=== PATIENT | male | born 1950 | race Caucasian/White ===

== ENCOUNTER 2022-08-09 06:18 | Day surgery (SDC) | payer MEDICARE, OTHER ==
[~2022-08-09 06:18] MED LIST: Lactated Ringers 1,000 ML IV SCH; cefOXitin 2 GM in Premix Bag 1 BAG IV ONE
[2022-08-09] MEDS ORDERED: Propofol 200 MG/20 ML SDV ONE ×3 (07:30→08:33)
[2022-08-09] MEDS ORDERED: cefOXitin 1 GM Vial ONE (07:32)
[2022-08-09] MEDS ORDERED: Lactated Ringers 1,000 ML IV SCH (09:00)
== END 2022-08-09 09:30 | disposition home or self-care (01) ==
LOC: MW.SDS 06:18
PROVIDERS: ATTEND Surgery
DX: K63.5 Polyp of colon (principal); K57.30 Diverticulosis of large intestine without perforation or abscess without bleeding; E66.9 Obesity, unspecified; K21.9 Gastro-esophageal reflux disease without esophagitis; F17.210 Nicotine dependence, cigarettes, uncomplicated; Z79.899 Other long term (current) drug therapy; Z68.30 Body mass index [BMI] 30.0-30.9, adult; Z96.641 Presence of right artificial hip joint
CPT/HCPCS: 45380; J0694; J2704; J7120; 00812; 88305